=== PATIENT | female | born 1985 ===

== ENCOUNTER 2017-05-23 18:45 | Inpatient (IN) | payer OTHER ==
[2017-05-23 18:59] VITALS: BMI 25.4
[2017-05-23] MEDS ORDERED: Oxycodone/Acetaminophen 5/325 mg Tab PO STA (21:15)
--- NOTE | 2017-05-23 21:59 | ED PDOC ---
Arrival/HPI - General Chief Complaint: Trauma Time Seen by Provider: 05/23/17 19:08 Historian: Patient - History of Present Illness Narrative History of Present Illness (Text): 05/23/17 19:08 Mahnaz Paredes is a 31 year old female who presents to the emergency department via EMS and [facility] after "jumping out of a window" because she did not want to talk/see her family members. She currently complains of right ankle pain, left knee pain and right hand pain. Denies any fever, chills, headache, dizziness, chest pain, shortness of breath or any other somatic complaints. Denies suicidal ideation or homicidal ideation. Time/Duration: Prior to Arrival Symptom Onset: Gradual Severity Level: Mild Activities at Onset: Light Past Medical History - Provider Review Nursing Documentation Reviewed: Yes - Infectious Disease Hx of Infectious Diseases: None - Psychiatric Hx Substance Use: No Family/Social History - Physician Review Nursing Documentation Reviewed: Yes Family/Social History: No Known Family HX Smoking Status: Current Some Days Smoker Hx Alcohol Use: Yes Hx Substance Use: No Allergies/Home Meds Allergies/Adverse Reactions: Allergies No Known Allergies Allergy (Verified 05/23/17 18:59) Home Medications: Home Meds Medication Instructions Recorded Confirmed Unobtainable 05/24/17 05/24/17 Review of Systems - Physician Review All systems were reviewed & negative as marked: Yes - Review of Systems Constitutional: Normal. absent: Fatigue, Fevers Respiratory: Normal. absent: SOB, Cough, Sputum Gastrointestinal: Normal. absent: Abdominal Pain, Diarrhea, Nausea, Vomiting Musculoskeletal: Other (right ankle and right hand pain. left knee pain ). absent: Back Pain, Neck Pain Neurological: Normal. absent: Headache, Dizziness Psychiatric: absent: Suicidal Ideation Physical Exam Vital Signs Reviewed: Yes Vital Signs Temp Pulse Resp BP Pulse Ox 05/24/17 04:28 80 16 128/78 99 05/24/17 00:30 88 14 132/78 98 05/23/17 21:00 86 14 130/80 98 05/23/17 18:59 98.4 F 89 18 140/92 H 100 Temperature: Afebrile Blood Pressure: Hypertensive Pulse: Regular Respiratory Rate: Normal Appearance: Positive for: Well-Appearing, Non-Toxic, Comfortable Pain Distress: None Mental Status: Positive for: Alert and Oriented X 3 - Systems Exam Head: Present: Atraumatic, Normocephalic Pupils: Present: PERRL Extroacular Muscles: Present: EOMI Conjunctiva: Present: Normal Mouth: Present: Moist Mucous Membranes Neck: Present: Normal Range of Motion. No: MIDLINE TENDERNESS, Paraspinal Tenderness Respiratory/Chest: Present: Clear to Auscultation, Good Air Exchange. No: Respiratory Distress, Accessory Muscle Use Cardiovascular: Present: Regular Rate and Rhythm, Normal S1, S2. No: Murmurs Abdomen: Present: Normal Bowel Sounds. No: Tenderness, Distention, Peritoneal Signs, Rebound, Guarding Upper Extremity: Present: Other (superficial abrasions of right hand ). No: Cyanosis, Edema Lower Extremity: Present: NORMAL PULSES, Normal ROM, Swelling (right ankle swelling ), Neurovascularly Intact. No: Edema, CALF TENDERNESS, Deformity, Temperature Abnormalties Neurological: Present: GCS=15, CN II-XII Intact, Speech Normal, Motor Func Grossly Intact, Normal Sensory Function Skin: Present: Warm, Dry, Normal Color. No: Rashes Psychiatric: Present: Alert, Oriented x 3 Medical Decision Making ED Course and Treatment: 05/23/17 22:02 Impression: A 31 year old female who presents to the emergency department complaining of right ankle pain, left knee pain and right hand pain following "jumping off a window." Plan: -- Percocet -- X-ray r.ankle, r.foot, l.knee, r.hand -- Reassess and disposition Progress Notes: 05/24/17 23:00 R.ankle X-ray shows right calcaneus fracture. 05/24/17 01:25 Case discussed with who recommends CT imaging of spine and upper and lower extremity. Accepts patient under hospitalist service for observation at Med/Surg for heel fracture. veronica e d/w dr layla finn orthopedic 05/24/17 04:14 CT Right Ankle reviewed: FINDINGS: Limitations: Suboptimal reformations. Bones/joints: Markedly comminuted, displaced intraarticular fracture body of calcaneus. Nondisplaced fracture navicular. Nondisplaced fracture lateral cuneiform. Avulsion fracture of talus. Asymmetric widening of ankle mortise. No dislocation. Soft tissues: Extensive soft tissue swelling/stranding . IMPRESSION: 1. Fractures as above. 2. Incidental/non-acute findings are described above. Dictated and Authenticated by: Jh Alonso MD CT Right Wrist reviewed: FINDINGS: Limitations: Suboptimal positioning. Bones/joints: No acute fracture. Soft tissues: Mild soft tissue swelling/stranding. IMPRESSION: 1. No fracture. 2. Incidental/non-acute findings are described above. CT Left Knee reviewed: FINDINGS: Bones/joints: Impaction fracture lateral femoral condyle. No dislocation. Small joint effusion. Soft tissues: Mild soft tissue swelling/stranding about knee. Other findings: Stranding within Hoffa's fat pad. IMPRESSION: 1. Impaction fracture lateral femoral condyle. 2. Small joint effusion. Suggest MRI to evaluate for internal derangement. 3. Incidental/non-acute findings are described above. Dictated and Authenticated by: Jh Alonso MD CT Cervical Spine reviewed: FINDINGS: Vertebrae: No acute fracture. Straightening of cervical spine. Discs/spinal canal/neural foramina: No significant spinal canal stenosis. Soft tissues: Unremarkable. Lung apices: Unremarkable as visualized. IMPRESSION: 1. No fracture. 2. Incidental/non-acute findings are described above. CT thoracic spine reviewed: FINDINGS: Vertebrae: No acute fracture. Discs/spinal canal/neural foramina: No significant spinal canal stenosis. Soft tissues: Unremarkable. IMPRESSION: 1. No fracture. 2. Incidental/non-acute findings are described above CT lumbar spine reviewed: FINDINGS: Vertebrae: No acute fracture. Discs/spinal canal/neural foramina: No significant spinal canal stenosis. Soft tissues: Unremarkable. Intraperitoneal space: Trace free fluid within pelvis. IMPRESSION: 1. No fracture. 2. Incidental/non-acute findings are described above. 05/24/17 23:44 - Lab Interpretations Lab Results: 05/24/17 07:30 05/24/17 07:30 Lab Results 05/24/17 07:30: Sodium 137, Potassium 4.4, Chloride 104, Carbon Dioxide 24, Anion Gap 13, BUN 11, Creatinine 0.7, Est GFR ( Amer) > 60, Est GFR (Non- Af Amer) > 60, Random Glucose 101, Calcium 9.1, Total Bilirubin 0.9, AST 30, ALT 31, Alkaline Phosphatase 64, Total Protein 7.3, Albumin 4.3, Globulin 2.9, Albumin/Globulin Ratio 1.5 05/24/17 07:30: WBC 13.7 H, RBC 4.30, Hgb 12.8, Hct 37.5, MCV 87.2, MCH 29.8, MCHC 34.1, RDW 11.8, Plt Count 254, MPV 10.8, Gran % 83.9 H, Lymph % (Auto) 8.9 L, Elliott % (Auto) 7.0 H, Eos % (Auto) 0.1 L, Baso % (Auto) 0.1, Gran # 11.47 H, Lymph # 1.2, Elliott # 1.0 H, Eos # 0.0, Baso # 0.01 I have reviewed the lab results: Yes - RAD Interpretation Radiology Orders: 05/23/17 19:31 ANKLE RIGHT 3 VIEWS ROUTINE [RAD] Stat FOOT RIGHT 3 VIEWS ROUTINE [RAD] Stat HAND RIGHT 3 VIEWS [RAD] Stat 05/23/17 19:32 KNEE LEFT 2 VIEWS (AP & LAT) [RAD] Stat 05/23/17 22:40 EXT LOWER W/O CONTRAST RIGHT [CT] Stat 05/23/17 23:16 THORACIC SPINE W/O CONT [CT] Stat 05/23/17 23:17 CERVICAL SPINE W/O CONTRAST [CT] Stat LUMBAR SPINE W/O CONTRAST [CT] Stat 05/24/17 02:10 EXT LOWER W/O CONTRAST LEFT [CT] Stat EXT UPPER W/O CONTRAST RIGHT [CT] Stat Dance Entertainer: Radiologist - Medication Orders Current Medication Orders: Bacitracin (Bacitracin) 2 ea TOP BID [facility] Last Admin: 05/24/17 17:37 Dose: Sodium Chloride (Sodium Chloride 0.9%) 1,000 mls @ 80 mls/hr IV .[id number] [facility] Last Admin: 05/24/17 15:13 Dose: 80 mls/hr Ibuprofen (Motrin Tab) 600 mg PO Q6H PRN PRN Reason: Pain, Mild (1-3) Last Admin: 05/24/17 21:15 Dose: 600 mg Morphine Sulfate (Morphine) 2 mg IVP Q4 PRN PRN Reason: Pain, severe (8-10) Last Admin: 05/24/17 19:45 Dose: 2 mg Re-Assess: [facility] Pain Assessment Document 05/24/17 20:45 B.P (Rec: 05/24/17 21:58 B.P [id number]) Pain Reassessment Is this a pain reassessment? Yes Sleep Is patient sleeping during reassessment? Yes Ondansetron HCl (Zofran Inj) 4 mg IVP Q4H PRN PRN Reason: Nausea/Vomiting Last Admin: 05/24/17 07:15 Dose: 4 mg Oxycodone/Acetaminophen (Percocet 5/325 Mg Tab) 1 tab PO Q4H PRN PRN Reason: Pain, moderate (4-7) Stop: 05/27/17 10:17 Last Admin: 05/24/17 17:42 Dose: 1 tab Pantoprazole Sodium (Protonix Ec Tab) 40 mg PO 0600 JOSE M Last Admin: 05/24/17 06:40 Dose: 40 mg Discontinued Medications Hydromorphone HCl (Dilaudid) 1 mg IVP STAT STA Stop: 05/24/17 01:28 Last Admin: 05/24/17 03:47 Dose: 1 mg Morphine Sulfate (Morphine) 2 mg IVP STAT STA Stop: 05/23/17 23:17 Last Admin: 05/23/17 23:36 Dose: 2 mg Morphine Sulfate (Morphine) 2 mg IVP Q4 PRN PRN Reason: Pain, moderate (4-7) Last Admin: 05/24/17 06:40 Dose: 2 mg Re-Assess: [facility] Pain Assessment Document 05/24/17 07:40 B.P (Rec: 05/24/17 08:12 B.P [id number]) Pain Reassessment Is this a pain reassessment? Yes Sleep Is patient sleeping during reassessment? Yes Morphine Sulfate (Morphine) 1 mg IVP ONCE ONE Stop: 05/24/17 14:28 Last Admin: 05/24/17 14:45 Dose: 1 mg Ondansetron HCl (Zofran Inj) 4 mg IVP STAT STA Stop: 05/24/17 04:38 Last Admin: 05/24/17 04:59 Dose: 4 mg Oxycodone/Acetaminophen (Percocet 5/325 Mg Tab) 1 tab PO STAT STA Stop: 05/23/17 21:16 Last Admin: 05/23/17 21:24 Dose: 1 tab - Scribe Statement The provider has reviewed the documentation as recorded by the Cedrick Talavera Provider Attestation: Provider Scribe Attestation: All medical record entries made by the Scribe were at my direction and personally dictated by me. I have reviewed the chart and agree that the record accurately reflects my personal performance of the history, physical exam, medical decision making, and the department course for this patient. I have also personally directed, reviewed, and agree with the discharge instructions and disposition. Disposition/Present on Arrival - Present on Arrival Any Indicators Present on Arrival: No History of DVT/PE: No History of Uncontrolled Diabetes: No Urinary Catheter: No History of Decub. Ulcer: No History Surgical Site Infection Following: None - Disposition Have Diagnosis and Disposition been Completed?: Yes Diagnosis: Fracture of calcaneus, Knee fracture, left Disposition: HOSPITALIZED Disposition Time: 01:00 Condition: FAIR
[2017-05-23] MEDS ORDERED: Morphine 2 mg/ml ISec IVP STA (23:16)
[2017-05-23] MEDS: Sodium Chloride 0.9% 1,000 ML IV SCH (23:37)
[2017-05-24] MEDS ORDERED: HYDROmorphone 1 mg/ml ISec IVP STA (01:27)
[2017-05-24] MEDS ORDERED: Morphine 2 mg/ml ISec IVP PRN (02:13)
--- NOTE | 2017-05-24 02:33 | CP.PCM.HP ---
<Dannie Harrison - Last Filed: 05/24/17 03:04> History of Present Illness - History of Present Illness History of Present Illness: CC: Fall Patient is a 31 year old female who presents to the ED via EMS for evaluation of trauma to body after falling out of her 2nd story window. She states that she fell because she was chasing after something that fell out from the window. Admits to pain in the right foot, right wrist, left knee pain. Patient did not lose counsciouness. She was not able to bear weight on right lower extremity s/ p fall. Denies fever, chills, chest pain, SOB, abdominal pain, N/V, diarrhea, constipation, and urinary symptoms. Denies suicidal ideation or homicidal ideation. Denies visual or auditory hallucination. PMHx: none PSHx: none Allergies: NKDA Social Hx: occasional ETOH use socially, no tobacco use, smokes marijuana occasionally, cannot quantify Home Medications: does not have any home medications Present on Admission - Present on Admission Any Indicators Present on Admission: No Review of Systems - Review of Systems Review of Systems: 12 point review of systems negative except as indicated in the HPI Past Patient History - Infectious Disease Hx of Infectious Diseases: None - Past Social History Smoking Status: Current Some Days Smoker - PSYCHIATRIC Hx Substance Use: No Meds Allergies/Adverse Reactions: Allergies Allergy/AdvReac Type Severity Reaction Status Date / Time No Known Allergies Allergy Verified 05/23/17 18:59 Physical Exam - Constitutional Appears: Non-toxic, No Acute Distress - Head Exam Head Exam: ATRAUMATIC, NORMAL INSPECTION - Eye Exam Eye Exam: EOMI, Normal appearance, PERRL - ENT Exam ENT Exam: Mucous Membranes Moist - Respiratory Exam Respiratory Exam: Clear to Auscultation Bilateral, NORMAL BREATHING PATTERN. absent: Rales, Rhonchi, Wheezes - Cardiovascular Exam Cardiovascular Exam: REGULAR RHYTHM, +S1, +S2 - GI/Abdominal Exam GI & Abdominal Exam: Soft. absent: Rebound, Rigid, Tenderness - Extremities Exam Extremities exam: Positive for: joint swelling, pedal pulses present Additional comments: right foot/ankle edema and ecchymosis left knee edema, tenderness to palpation on MCL right wrist edema with ecchymosis - Neurological Exam Neurological exam: CN II-XII Intact, Oriented x3 Additional comments: 5/5 muscle strength bilateral upper extremities right lower extremity 5/5 muscle strength left lower extremity exam guarded 2/2 pain sensation intact to touch throughout - Psychiatric Exam Psychiatric exam: Normal Affect, Normal Mood - Skin Additional comments: abrasions on the right upper extremity medial aspect abrasion on right wrist dorsal aspect Results - Vital Signs Recent Vital Signs: Last Vital Signs Temp 98.4 F 05/23/17 18:59 Pulse 89 05/23/17 18:59 Resp 18 05/23/17 18:59 BP 140/92 H 05/23/17 18:59 Pulse Ox 100 05/23/17 18:59 Assessment & Plan - Assessment and Plan (Free Text) Assessment: Patient is a 31 year old female with no PMHx who is being admitted and evaluated for a right foot fracture s/p mechanical fall. 1. Fracture s/p Mechanical Fall, details- - x- rays reviewed right ankle, right foot, right wrist, left knee - orthopedic surgery consult - pain control with morphine - CT of right knee and ankle ordered - CT of cervical, thoracic, and lumbar spine ordered - NPO - IVF 2. Gait dysfunction - PT/OT pending ortho recs - high risk fall precautions 3. PPX - protonix <He Gregorio P - Last Filed: 05/24/17 06:24> Results - Vital Signs Recent Vital Signs: Last Vital Signs Temp 97.8 F 05/24/17 05:41 Pulse 80 05/24/17 04:28 Resp 20 05/24/17 05:41 BP 127/79 05/24/17 05:41 Pulse Ox 99 05/24/17 04:28 Attending/Attestation - Attestation I have personally seen and examined this patient.: Yes I have fully participated in the care of the patient.: Yes I have reviewed all pertinent clinical information: Yes Notes (Text): 05/24/17 06:18 Patient admits falling 2 story but not willing to mention the circumstances, was with her girl friend, absolutely denied sucidal ideation and mentioned as accident. Injure and complained of right foot pain swelling, left knee swelling and pain, right wrist pain and swelling, some abrasions in both arms. W /u showed comminuted closed right calcaneal body fracture, left lateral knee condyle fracture with b/l collateral ligament tenderness, suspected right scaphoid area tenderness with negative, neurovascularly intact right foot, left foot, knee, right wrist. Orthopedic eval, npo except med, pain control, gi, dvt prophylaxis.
--- NOTE | 2017-05-24 04:00 | CT ---
EXAM: CT Thoracic Spine Without Intravenous Contrast CLINICAL HISTORY: 31 years old, female; Pain; Pain in thoracic spine; Additional info: Fall TECHNIQUE: Axial computed tomography images of the thoracic spine without intravenous contrast. This CT exam was performed using one or more of the following dose reduction techniques: automated exposure control, adjustment of the mA and/or kV according to patient size, and/or use of iterative reconstruction technique. Coronal and sagittal reformatted images were created and reviewed. COMPARISON: No relevant prior studies available. FINDINGS: Vertebrae: No acute fracture. Discs/spinal canal/neural foramina: No significant spinal canal stenosis. Soft tissues: Unremarkable. IMPRESSION: 1. No fracture. 2. Incidental/non-acute findings are described above.
--- NOTE | 2017-05-24 04:02 | CT ---
EXAM: CT Cervical Spine Without Intravenous Contrast CLINICAL HISTORY: 31 years old, female; Pain; Neck pain; Additional info: Fall TECHNIQUE: Axial computed tomography images of the cervical spine without intravenous contrast. This CT exam was performed using one or more of the following dose reduction techniques: automated exposure control, adjustment of the mA and/or kV according to patient size, and/or use of iterative reconstruction technique. Coronal and sagittal reformatted images were created and reviewed. COMPARISON: No relevant prior studies available. FINDINGS: Vertebrae: No acute fracture. Straightening of cervical spine. Discs/spinal canal/neural foramina: No significant spinal canal stenosis. Soft tissues: Unremarkable. Lung apices: Unremarkable as visualized. IMPRESSION: 1. No fracture. 2. Incidental/non-acute findings are described above.
--- NOTE | 2017-05-24 04:03 | CT ---
EXAM: CT Lumbar Spine Without Intravenous Contrast CLINICAL HISTORY: 31 years old, female; Pain; Low back pain; Additional info: Fall TECHNIQUE: Axial computed tomography images of the lumbar spine without intravenous contrast. This CT exam was performed using one or more of the following dose reduction techniques: automated exposure control, adjustment of the mA and/or kV according to patient size, and/or use of iterative reconstruction technique. Coronal and sagittal reformatted images were created and reviewed. COMPARISON: No relevant prior studies available. FINDINGS: Vertebrae: No acute fracture. Discs/spinal canal/neural foramina: No significant spinal canal stenosis. Soft tissues: Unremarkable. Intraperitoneal space: Trace free fluid within pelvis. IMPRESSION: 1. No fracture. 2. Incidental/non-acute findings are described above.
--- NOTE | 2017-05-24 04:14 | CT ---
EXAM: CT Right Lower Extremity Without Intravenous Contrast, Ankle CLINICAL HISTORY: 31 years old, female; Pain; Ankle and heel; Right TECHNIQUE: Axial computed tomography images of the right ankle without intravenous contrast. This CT exam was performed using one or more of the following dose reduction techniques: automated exposure control, adjustment of the mA and/or kV according to patient size, and/or use of iterative reconstruction technique. Coronal and sagittal reformatted images were created and reviewed. COMPARISON: DX - FOOT RIGHT 3 VIEWS ROUTINE 05/23/2017 9:40:51 PM FINDINGS: Limitations: Suboptimal reformations. Bones/joints: Markedly comminuted, displaced intraarticular fracture body of calcaneus. Nondisplaced fracture navicular. Nondisplaced fracture lateral cuneiform. Avulsion fracture of talus. Asymmetric widening of ankle mortise. No dislocation. Soft tissues: Extensive soft tissue swelling/stranding. IMPRESSION: 1. Fractures as above. 2. Incidental/non-acute findings are described above.
--- NOTE | 2017-05-24 04:18 | CT ---
EXAM: CT Left Lower Extremity Without Intravenous Contrast, Knee CLINICAL HISTORY: 31 years old, female; Pain; Knee; Left TECHNIQUE: Axial computed tomography images of the left knee without intravenous contrast. This CT exam was performed using one or more of the following dose reduction techniques: automated exposure control, adjustment of the mA and/or kV according to patient size, and/or use of iterative reconstruction technique. Coronal and sagittal reformatted images were created and reviewed. COMPARISON: DX - KNEE LEFT 2 VIEWS (AP LAT) 05/23/2017 9:43:57 PM FINDINGS: Bones/joints: Impaction fracture lateral femoral condyle. No dislocation. Small joint effusion. Soft tissues: Mild soft tissue swelling/stranding about knee. Other findings: Stranding within Hoffa's fat pad. IMPRESSION: 1. Impaction fracture lateral femoral condyle. 2. Small joint effusion. Suggest MRI to evaluate for internal derangement. 3. Incidental/non-acute findings are described above.
--- NOTE | 2017-05-24 04:22 | CT ---
EXAM: CT Right Upper Extremity Without Intravenous Contrast, Wrist CLINICAL HISTORY: 31 years old, female; Pain; Wrist; Right TECHNIQUE: Axial computed tomography images of the right wrist without intravenous contrast. This CT exam was performed using one or more of the following dose reduction techniques: automated exposure control, adjustment of the mA and/or kV according to patient size, and/or use of iterative reconstruction technique. COMPARISON: No relevant prior studies available. FINDINGS: Limitations: Suboptimal positioning. Bones/joints: No acute fracture. Soft tissues: Mild soft tissue swelling/stranding. IMPRESSION: 1. No fracture. 2. Incidental/non-acute findings are described above.
[2017-05-24 06:13] VITALS: RESP 20
[2017-05-24] MEDS: Pantoprazole 40 mg EC Tab PO SCH (06:40)
--- NOTE | 2017-05-24 07:49 | RAD ---
PROCEDURE: Left Knee Radiographs. HISTORY: Pain. COMPARISON: None. FINDINGS: BONES: Normal. No fracture. JOINTS: Normal. No osteoarthritis. JOINT EFFUSION: None. OTHER FINDINGS: None. IMPRESSION: Normal radiographs of the left knee.
--- NOTE | 2017-05-24 07:49 | RAD ---
PROCEDURE: Right Hand Radiographs. HISTORY: fall COMPARISON: None. FINDINGS: BONES: Normal. No fracture. JOINTS: Normal. No osteoarthritic changes. SOFT TISSUES: Normal. OTHER FINDINGS: None. IMPRESSION: Normal right hand radiographs.
[2017-05-24 07:54] LABS: BASO # 0.01 K/mm3 (0.0-2.0); BASO % 0.1 % (0.0-3.0); EOS % 0.1 % (1.5-5.0); GRAN # 11.47 (1.4-6.5); GRAN % 83.9 % (50.0-68.0); HEMOGLOBIN 12.8 gm/dL (12.0-16.0); LYMPH # 1.2 (1.2-3.4); LYMPH % 8.9 % (22.0-35.0); MEAN CELL VOLUME 87.2 fL (80.0-105.0); MEAN CORPUSCULAR HEMOGLOBIN 29.8 pg (25.0-35.0); MEAN CORPUSCULAR HGB CONC 34.1 g/dl (31.0-37.0); MEAN PLATELET VOLUME 10.8 fl (7.0-11.0); PLATELET COUNT 254 10^3/uL (120.0-450.0); RED CELL DISTRIBUTION WIDTH 11.8 % (11.5-14.5); WHITE BLOOD COUNT 13.7 10^3/ul (4.5-11.0)
--- NOTE | 2017-05-24 07:54 | RAD ---
PROCEDURE: Right Foot Radiographs. HISTORY: fall COMPARISON: None. FINDINGS: BONES: Extensive comminuted calcaneal fractures with displacement of the fracture fragments suggested comminuted fracture also involves cuboid bone. The metatarsal phalanges appear intact Fracture. JOINTS: Normal. SOFT TISSUES: Ankle/hindfoot diffuse soft tissue swelling OTHER FINDINGS: None. IMPRESSION: Extensively comminuted fractures - displaced ; calcaneal and cuboid bones affected -per these images. Intra-articular extensions Comments: Please refer to the CT lower extremity exam for fracture mapping additional findings
--- NOTE | 2017-05-24 07:57 | RAD ---
PROCEDURE: Right Ankle Radiographs. HISTORY: fall COMPARISON: None FINDINGS: BONES: Extensively comminuted and displaced calcaneal fractures with talocalcaneal intra-articular extension. Comminuted cuboid fracture is also suggested. . Dorsal navicular subcortical cysts JOINTS: No osteoarthritis. Ankle mortise appears slightly widened lateral aspect. Talar dome intact SOFT TISSUES: Diffuse ankle/hindfoot soft tissue swelling OTHER FINDINGS: None. IMPRESSION: Extensively comminuted and displaced fractures -calcaneus and cuboid with intra-articular extensions. Lateral ankle mortise widening
[2017-05-24 08:04] LABS: ALB/GLOB RATIO 1.5 (1.1-1.8); ALBUMIN 4.3 g/dL (3.0-4.8); ALT/SGPT 31 U/L (7-56); AST/SGOT 30 U/L (15-39); BLOOD UREA NITROGEN 11 mg/dL (7-21); CALCIUM 9.1 mg/dL (8.4-10.5); GFR AFRICAN-AMERICAN > 60; GFR NON-AFRICAN AMERICAN > 60
[2017-05-24] MEDS: Morphine 2 mg/ml ISec IVP PRN ×2 (10:45→19:45)
[2017-05-24] MEDS: Oxycodone/Acetaminophen 5/325 mg Tab PO PRN ×2 (13:59→17:42)
[2017-05-24] MEDS ORDERED: Morphine 2 mg/ml ISec IVP ONE (14:27)
[2017-05-24] MEDS: Sodium Chloride 0.9% 1,000 ML IV SCH (15:13)
[2017-05-24] MEDS: Bacitracin 500 Units/gm Oint Foilpak UD TOP SCH ×2 (15:13→17:37)
--- NOTE | 2017-05-24 17:34 | CP.PCM.PCO ---
Physician Communication Note - Physician Communication Note Physician Communication Note: Spoke w/ Dr. Amador Mckeon, will see in AM, order PT, ambulate, nonwtbearing R
[2017-05-25] MEDS: Morphine 2 mg/ml ISec IVP PRN ×4 (00:05→20:42)
[2017-05-25] MEDS: Pantoprazole 40 mg EC Tab PO SCH (05:45)
[2017-05-25] MEDS: Oxycodone/Acetaminophen 5/325 mg Tab PO PRN ×2 (05:45→22:01)
[2017-05-25 05:57] LABS: URINE BILIRUBIN NEGATIVE (NEGATIVE); URINE BLOOD NEGATIVE (NEGATIVE); URINE GLUCOSE (UA) NEGATIVE (NEGATIVE); URINE LEUKOCYTE ESTERASE NEGATIVE Leu/uL (NEGATIVE); URINE NITRATE NEGATIVE (NEGATIVE); URINE PROTEIN NEGATIVE mg/dL (<30 mg/dL); URINE UROBILINOGEN 0.2 E.U./dL (<1 E.U./dL)
[2017-05-25 06:03] LABS: URINE APPEARANCE CLEAR (CLEAR); URINE COLOR YELLOW (YELLOW)
[2017-05-25 06:15] LABS: BARBITURATES, UR NEGATIVE (NEGATIVE); BENZODIAZEPINES, UR NEGATIVE (NEGATIVE); OPIATES, UR POSITIVE (NEGATIVE); PHENCYCLIDINE, UR NEGATIVE (NEGATIVE)
[2017-05-25 07:35] LABS: ALB/GLOB RATIO 1.4 (1.1-1.8); ALBUMIN 3.8 g/dL (3.0-4.8); ALT/SGPT 30 U/L (7-56); AST/SGOT 31 U/L (15-39); BLOOD UREA NITROGEN 10 mg/dL (7-21); CALCIUM 8.5 mg/dL (8.4-10.5); GFR AFRICAN-AMERICAN > 60; GFR NON-AFRICAN AMERICAN > 60
[2017-05-25 07:44] LABS: BASO # 0.01 K/mm3 (0.0-2.0); BASO % 0.1 % (0.0-3.0); EOS # 0.1 (0.0-0.7); GRAN # 5.52 (1.4-6.5); GRAN % 69.6 % (50.0-68.0); HEMOGLOBIN 11.9 gm/dL (12.0-16.0); LYMPH # 1.5 (1.2-3.4); LYMPH % 19.1 % (22.0-35.0); MEAN CELL VOLUME 89.6 fL (80.0-105.0); MEAN CORPUSCULAR HEMOGLOBIN 30.1 pg (25.0-35.0); MEAN CORPUSCULAR HGB CONC 33.6 g/dl (31.0-37.0); MEAN PLATELET VOLUME 11.8 fl (7.0-11.0); MONO # 0.8 (0.1-0.6); MONO % 10.2 % (1.0-6.0); PLATELET COUNT 223 10^3/uL (120.0-450.0); RBC 3.95 10^6/uL (3.5-6.1); RED CELL DISTRIBUTION WIDTH 11.7 % (11.5-14.5); WHITE BLOOD COUNT 7.9 10^3/ul (4.5-11.0)
[2017-05-25] MEDS: Bacitracin 500 Units/gm Oint Foilpak UD TOP SCH ×2 (10:27→18:28)
[2017-05-25] MEDS: Sodium Chloride 0.9% 1,000 ML IV SCH (14:30)
[2017-05-25 16:40] VITALS: BP 114/75; PULSE 97; TEMP 98.4; O2SAT 100
--- NOTE | 2017-05-26 05:24 | CP.PCM.DIS ---
<FLETCHER MACHADO - Last Filed: 05/26/17 04:45> Provider - Provider Date of Admission: 05/24/17 10:15 Attending physician: Andrew Chacon MD Primary care physician: NO PRIMARY CARE PROVIDER Time Spent in preparation of Discharge (in minutes): 45 Hospital Course - Lab Results Lab Results: Most Recent Lab Values WBC 7.9 10^3/ul (4.5-11.0) D 05/25/17 06:40 RBC 3.95 10^6/uL (3.5-6.1) 05/25/17 06:40 Hgb 11.9 gm/dL (12.0-16.0) L 05/25/17 06:40 Hct 35.4 % (36.0-48.0) L 05/25/17 06:40 MCV 89.6 fL (80.0-105.0) 05/25/17 06:40 MCH 30.1 pg (25.0-35.0) 05/25/17 06:40 MCHC 33.6 g/dl (31.0-37.0) 05/25/17 06:40 RDW 11.7 % (11.5-14.5) 05/25/17 06:40 Plt Count 223 10^3/uL (120.0-450.0) 05/25/17 06:40 MPV 11.8 fl (7.0-11.0) H 05/25/17 06:40 Gran % 69.6 % (50.0-68.0) H 05/25/17 06:40 Lymph % (Auto) 19.1 % (22.0-35.0) L 05/25/17 06:40 Moca % (Auto) 10.2 % (1.0-6.0) H 05/25/17 06:40 Eos % (Auto) 1.0 % (1.5-5.0) L 05/25/17 06:40 Baso % (Auto) 0.1 % (0.0-3.0) 05/25/17 06:40 Gran # 5.52 (1.4-6.5) 05/25/17 06:40 Lymph # 1.5 (1.2-3.4) 05/25/17 06:40 Moca # 0.8 (0.1-0.6) H 05/25/17 06:40 Eos # 0.1 (0.0-0.7) 05/25/17 06:40 Baso # 0.01 K/mm3 (0.0-2.0) 05/25/17 06:40 Sodium 139 mmol/L (132-148) 05/25/17 06:40 Potassium 4.3 mmol/L (3.6-5.0) 05/25/17 06:40 Chloride 107 mmol/L (95-110) 05/25/17 06:40 Carbon Dioxide 24 mmol/L (21-33) 05/25/17 06:40 Anion Gap 12 (10-20) 05/25/17 06:40 BUN 10 mg/dL (7-21) 05/25/17 06:40 Creatinine 0.7 mg/dL (0.5-1.4) 05/25/17 06:40 Est GFR ( Amer) > 60 05/25/17 06:40 Est GFR (Non-Af Amer) > 60 05/25/17 06:40 Random Glucose 91 mg/dL (70-110) 05/25/17 06:40 Calcium 8.5 mg/dL (8.4-10.5) 05/25/17 06:40 Total Bilirubin 0.6 mg/dL (0.2-1.3) 05/25/17 06:40 AST 31 U/L (15-39) 05/25/17 06:40 ALT 30 U/L (7-56) 05/25/17 06:40 Alkaline Phosphatase 60 U/L (38-133) 05/25/17 06:40 Total Protein 6.6 g/dL (5.8-8.3) 05/25/17 06:40 Albumin 3.8 g/dL (3.0-4.8) 05/25/17 06:40 Globulin 2.8 gm/dL 05/25/17 06:40 Albumin/Globulin Ratio 1.4 (1.1-1.8) 05/25/17 06:40 Urine Color Yellow (YELLOW) 05/25/17 05:30 Urine Appearance Clear (CLEAR) 05/25/17 05:30 Urine pH 6.0 (4.7-8.0) 05/25/17 05:30 Ur Specific [place] 1.010 (1.005-1.035) 05/25/17 05:30 Urine Protein Negative mg/dL (<30 mg/dL) 05/25/17 05:30 Urine Glucose (UA) Negative mg/dL (NEGATIVE) 05/25/17 05:30 Urine Ketones Negative mg/dL (NEGATIVE) 05/25/17 05:30 Urine Blood Negative (NEGATIVE) 05/25/17 05:30 Urine Nitrate Negative (NEGATIVE) 05/25/17 05:30 Urine Bilirubin Negative (NEGATIVE) 05/25/17 05:30 Urine Urobilinogen 0.2 E.U./dL (<1 E.U./dL) 05/25/17 05:30 Ur Leukocyte Esterase Negative Alejandrina/uL (NEGATIVE) 05/25/17 05:30 Urine Opiates Screen Positive (NEGATIVE) H 05/25/17 05:30 Urine Methadone Screen Negative (NEGATIVE) 05/25/17 05:30 Ur Barbiturates Screen Negative (NEGATIVE) 05/25/17 05:30 Ur Phencyclidine Scrn Negative (NEGATIVE) 05/25/17 05:30 Ur Amphetamines Screen Negative (NEGATIVE) 05/25/17 05:30 U Benzodiazepines Scrn Negative (NEGATIVE) 05/25/17 05:30 U Oth Cocaine Metabols Negative (NEGATIVE) 05/25/17 05:30 U Cannabinoids Screen Negative (NEGATIVE) 05/25/17 05:30 - Hospital Course Hospital Course: Ms. Paredes is a 31 yo F with no PMHx who presented [place] [facility] [place] for evaluation of trauma after falling out of 2nd story window. XRays showed extensively comminuted and displaced fractures of R calcaneus and cuboid with intra-articular extensions. CT was done for LE, UE, cervical, thoracic and lumbar spines as well. CT RLE confirmed the comminuted and displaced intra- articular fracture body of calcaneus, avulsion fracture or talus and widening of ankle mortise. CT or LLE showed impaction fracture of the L lateral femoral condyle. CT of RUE showed swelling but no fractures. CT's of the spine were all negative for fractures or stenosis. The patient was transferred to the medicine floors for management while she was seen by Dr. Amador Mckeon (Ortho). On the floors, the patient's labs were all normal. Pain was controlled by Motrin 600mg Q6 PRN, Morphine 2mg Q4 PRN, and Percocet 5mg Q4 PRN. Pt's RLE was in a splint and the L knee was in a soft brace. The patient's UE wounds were cleaned with saline and bacitracin was applied. When asked about the fall, pt states that a decorative piece fell off her wall out the window and she was reaching for it when she somehow fell. Pt states that she lives at home with her family, girlfriend and another family that is staying over for a short time. Pt denied any suicidal ideations, drug or ETOH use. Contact was made with Dr. Amador Mckeon via phone on 05/24/[address] reports were sent to him, and Dr. Amador Mckeon stated that he will be in to see the patient in the AM. Dr. Amador Mckeon saw the pt on morning of 05/25 and re- splinted her RLE and requested a transfer to [facility] to a colleague Dr. Fletcher Barclay. This morning, the patient admitted to being in pain but was able to tolerate waiting for her pain meds. denied any fevers, numbness, tingling, shortness of breath or chest pain. The patient transfer was accepted and carried out throughout the day. The patient was transferred later in the evening. - Date & Time of H&P Date of H&P: 05/24/17 Time of H&P: 02:25 Discharge Exam - Head Exam Head Exam: ATRAUMATIC, NORMAL INSPECTION, NORMOCEPHALIC - Eye Exam Eye Exam: EOMI, Normal appearance, PERRL Pupil Exam: NORMAL ACCOMODATION - ENT Exam ENT Exam: Mucous Membranes Moist, Normal Exam - Respiratory Exam Respiratory Exam: Clear to PA & Lateral, NORMAL BREATHING PATTERN. absent: Accessory Muscle Use, Chest Wall Tenderness, Rales, Rhonchi, Wheezes, Respiratory Distress, Stridor - Cardiovascular Exam Cardiovascular Exam: RRR, +S1, +S2. absent: Bradycardia, Tachycardia, Diastolic murmur, Gallop, JVD, Rubs, Systolic Murmur - GI/Abdominal Exam GI & Abdominal Exam: Normal Bowel Sounds, Soft, Unremarkable. absent: Distended , Guarding, Mass, Organomegaly, Rebound, Tenderness - Extremities Exam Extremities exam: pedal pulses present (b/l) Additional comments: RLE in splint up to above knee LLE has soft brace wrapped around knee - Neurological Exam Neurological exam: Alert, Oriented x3 Additional comments: could not assess gait due to injury. extremities are neurovascularly intact, no motor deficits, no sensory deficits - Psychiatric Exam Psychiatric exam: Normal Affect, Normal Mood - Skin Skin Exam: Normal Color, Warm Discharge Plan - Follow Up Plan Condition: FAIR Disposition: Transfer [facility] Instructions: Ankle Fracture (DC), Patellar Fracture (DC), Fall Prevention (DC) Additional Instructions: Ms. Paredes, You are being transferred to [facility] per recommendations by Dr. Amador Mckeon and will be received by Dr. Fletcher Barclay for further care and management. Your scans have been included on a CD for convenience. Thank you Fletcher Machado, PGY1 Dr. Andrew Chacon, Attending Physician Referrals: PCP,NO [Primary Care Provider] - <Andrew Chacon - Last Filed: 05/28/17 10:27> Provider - Provider Date of Admission: 05/24/17 10:15 Attending physician: Andrew Chacon MD Primary care physician: NO PRIMARY CARE PROVIDER Hospital Course - Lab Results Lab Results: Most Recent Lab Values WBC 7.9 10^3/ul (4.5-11.0) D 05/25/17 06:40 RBC 3.95 10^6/uL (3.5-6.1) 05/25/17 06:40 Hgb 11.9 gm/dL (12.0-16.0) L 05/25/17 06:40 Hct 35.4 % (36.0-48.0) L 05/25/17 06:40 MCV 89.6 fL (80.0-105.0) 05/25/17 06:40 MCH 30.1 pg (25.0-35.0) 05/25/17 06:40 MCHC 33.6 g/dl (31.0-37.0) 05/25/17 06:40 RDW 11.7 % (11.5-14.5) 05/25/17 06:40 Plt Count 223 10^3/uL (120.0-450.0) 05/25/17 06:40 MPV 11.8 fl (7.0-11.0) H 05/25/17 06:40 Gran % 69.6 % (50.0-68.0) H 05/25/17 06:40 Lymph % (Auto) 19.1 % (22.0-35.0) L 05/25/17 06:40 Moca % (Auto) 10.2 % (1.0-6.0) H 05/25/17 06:40 Eos % (Auto) 1.0 % (1.5-5.0) L 05/25/17 06:40 Baso % (Auto) 0.1 % (0.0-3.0) 05/25/17 06:40 Gran # 5.52 (1.4-6.5) 05/25/17 06:40 Lymph # 1.5 (1.2-3.4) 05/25/17 06:40 Moca # 0.8 (0.1-0.6) H 05/25/17 06:40 Eos # 0.1 (0.0-0.7) 05/25/17 06:40 Baso # 0.01 K/mm3 (0.0-2.0) 05/25/17 06:40 Sodium 139 mmol/L (132-148) 05/25/17 06:40 Potassium 4.3 mmol/L (3.6-5.0) 05/25/17 06:40 Chloride 107 mmol/L (95-110) 05/25/17 06:40 Carbon Dioxide 24 mmol/L (21-33) 05/25/17 06:40 Anion Gap 12 (10-20) 05/25/17 06:40 BUN 10 mg/dL (7-21) 05/25/17 06:40 Creatinine 0.7 mg/dL (0.5-1.4) 05/25/17 06:40 Est GFR ( Amer) > 60 05/25/17 06:40 Est GFR (Non-Af Amer) > 60 05/25/17 06:40 Random Glucose 91 mg/dL (70-110) 05/25/17 06:40 Calcium 8.5 mg/dL (8.4-10.5) 05/25/17 06:40 Total Bilirubin 0.6 mg/dL (0.2-1.3) 05/25/17 06:40 AST 31 U/L (15-39) 05/25/17 06:40 ALT 30 U/L (7-56) 05/25/17 06:40 Alkaline Phosphatase 60 U/L (38-133) 05/25/17 06:40 Total Protein 6.6 g/dL (5.8-8.3) 05/25/17 06:40 Albumin 3.8 g/dL (3.0-4.8) 05/25/17 06:40 Globulin 2.8 gm/dL 05/25/17 06:40 Albumin/Globulin Ratio 1.4 (1.1-1.8) 05/25/17 06:40 Urine Color Yellow (YELLOW) 05/25/17 05:30 Urine Appearance Clear (CLEAR) 05/25/17 05:30 Urine pH 6.0 (4.7-8.0) 05/25/17 05:30 Ur Specific [place] 1.010 (1.005-1.035) 05/25/17 05:30 Urine Protein Negative mg/dL (<30 mg/dL) 05/25/17 05:30 Urine Glucose (UA) Negative mg/dL (NEGATIVE) 05/25/17 05:30 Urine Ketones Negative mg/dL (NEGATIVE) 05/25/17 05:30 Urine Blood Negative (NEGATIVE) 05/25/17 05:30 Urine Nitrate Negative (NEGATIVE) 05/25/17 05:30 Urine Bilirubin Negative (NEGATIVE) 05/25/17 05:30 Urine Urobilinogen 0.2 E.U./dL (<1 E.U./dL) 05/25/17 05:30 Ur Leukocyte Esterase Negative Alejandrina/uL (NEGATIVE) 05/25/17 05:30 Urine Opiates Screen Positive (NEGATIVE) H 05/25/17 05:30 Urine Methadone Screen Negative (NEGATIVE) 05/25/17 05:30 Ur Barbiturates Screen Negative (NEGATIVE) 05/25/17 05:30 Ur Phencyclidine Scrn Negative (NEGATIVE) 05/25/17 05:30 Ur Amphetamines Screen Negative (NEGATIVE) 05/25/17 05:30 U Benzodiazepines Scrn Negative (NEGATIVE) 05/25/17 05:30 U Oth Cocaine Metabols Negative (NEGATIVE) 05/25/17 05:30 U Cannabinoids Screen Negative (NEGATIVE) 05/25/17 05:30 Attending/Attestation - Attestation I have personally seen and examined this patient.: Yes I have fully participated in the care of the patient.: Yes I have reviewed all pertinent clinical information, including history, physical exam and plan: Yes Notes (Text): I have seen and examined the patient at bedside. Agree with the above note with the following additions/ exceptions: Briefly this is 31 year old female who developed multiple fractures of lower extremity s/p fall. Patients right lower extremity is in a splint and left knee has a soft brace. Ortho consult appreciated. Patient is being transferred to [facility] under service of Dr Fletcher Barclay for management.
== END 2017-05-25 23:15 | disposition short-term general hospital (02) | DRG 253 ==
LOC: ED 18:45 → ERH 05-24 01:25 → 5RNO 05-24 05:28 → OBSVTOIN 05-24 10:15
PROVIDERS: ADMIT Internal Medicine; ATTEND Hospitalist
DX: S92.001A Unspecified fracture of right calcaneus, initial encounter for closed fracture (principal); S72.422A Displaced fracture of lateral condyle of left femur, initial encounter for closed fracture; W17.89XA Other fall from one level to another, initial encounter; S92.211A Displaced fracture of cuboid bone of right foot, initial encounter for closed fracture; M25.462 Effusion, left knee; F17.210 Nicotine dependence, cigarettes, uncomplicated